=== PATIENT | female | born 1965 | race African-American/Black ===

== ENCOUNTER 2018-03-12 14:05 | Emergency (ER) | payer SELFPAY ==
[2018-03-12 14:27] LABS: #Basophils 0.1 thou/uL (0.0-0.2); #Eosinphils 0.1 thou/uL (0.0-0.7); #Monocytes 0.4 thou/uL (0.11-0.59); #Neutrophils 4.4 thou/uL (1.40-6.50); %Basophils 1.8 % (0.0-1.0); %Lymphocytes 37.5 % (21.0-51.0); %Monocytes 5.5 % (0.0-10.0); %Neutrophils 54.2 % (42.0-75.0); Hemoglobin 13.2 g/dL (12.0-16.0); Mean Corpuscular HGB CONC 33.5 g/dL (32.0-36.0); Mean Corpuscular Hemoglobin 29.2 pg (27.0-31.0); Mean Corpuscular Volume 87.1 fL (78.0-98.0); Mean Platelet Volume 7.5 fL (7.4-10.4); Platelet Count 343 thou/uL (130-400); RBC Distribution Width 13.3 % (11.5-14.5); Red Blood Cell (RBC) Count 4.52 mill/uL (4.20-5.40)
--- NOTE | 2018-03-12 14:48 | RAD ---
PA CHEST: History: Chest pain. Comparison: 10-20-16 FINDINGS: The lungs are clear. No infiltrates seen. Heart and mediastinum unremarkable and stable. IMPRESSION: No acute finding or interval change noted. POS: [facility]
[2018-03-12 14:49] LABS: ALT (SGPT) 13 U/L (8-55); AST (SGOT) 30 U/L (5-34); Albumin 4.7 g/dL (3.5-5.0); Alkaline Phosphatase 151 U/L (40-150); Anion Gap 12 mmol/L (10-20); BUN (Urea Nitrogen) 11 mg/dL (9.8-20.1); CK (CPK) 819 U/L (29-168); Calc. Creatinine Clearance 0 mL/min (70-130); Calcium 10.1 mg/dL (7.8-10.44); Carbon Dioxide 31 mmol/L (22-29); Chloride 100 mmol/L (98-107); Estimated GFR-MDRD 74; Globulin 3.9 g/dL (2.4-3.5); Glucose 117 mg/dL (70-105); Lipase 11 U/L (8-78); Potassium 3.1 mmol/L (3.5-5.1); Protein, Total 8.6 g/dL (6.0-8.3); Sodium 140 mmol/L (136-145)
[2018-03-12 14:53] LABS: CKMB 3.5 ng/mL (0-6.6); Troponin I Less than 0.010 ng/mL (< 0.028)
[2018-03-12] MEDS ORDERED: Mag-Al 1200 mg/1200 mg/30 ML UDCUP ONE (15:52)
[2018-03-12] MEDS ORDERED: Lidocaine Viscous Sol 2% 15 ml UD Cup ONE (15:52)
[2018-03-12] MEDS ORDERED: Lorazepam 1 MG TAB ONE (15:54)
== END 2018-03-12 16:55 | disposition home or self-care (01) ==
LOC: ERS 14:05
DX: K20.9 Esophagitis, unspecified (principal); F41.9 Anxiety disorder, unspecified; I10 Essential (primary) hypertension; Z79.899 Other long term (current) drug therapy
CPT/HCPCS: 36415; 71045; 80053; 82553; 83690; 84484; 85025; 93005; 94760

== ENCOUNTER 2018-06-21 13:49 | Outpatient (CLI) | payer MEDICARE | END 2018-06-21 13:50 | disposition home or self-care (01) | LOC: BICMAMMO 13:49 | PROVIDERS: ATTEND Family Medicine | DX: Z12.31 Encounter for screening mammogram for malignant neoplasm of breast (principal); N63.10 Unspecified lump in the right breast, unspecified quadrant | CPT/HCPCS: 77063; 77067 ==

== ENCOUNTER 2018-07-11 11:11 | Outpatient (CLI) | payer MEDICARE ==
--- NOTE | 2018-07-11 13:41 | ULT ---
RIGHT BREAST ULTRASOUND: History: Lobulated mass noted at the 6 o'clock position of the right breast on recent mammogram. FINDINGS: Real-time imaging of the area of concern shows a lobulated cyst with some thin internal septations. N o abnormal vascular flow. This measures 9 mm in size. It is superficial in location and corresponds i n size and location to the mammographic abnormality. IMPRESSION: BIRADS category 2 - benign findings. Routine mammographic follow up is recommended. POS: [facility]
== END 2018-07-11 11:12 | disposition home or self-care (01) ==
LOC: BICMAMMO 11:11
PROVIDERS: ATTEND Family Medicine
DX: R92.2 Inconclusive mammogram (principal); N63.10 Unspecified lump in the right breast, unspecified quadrant
CPT/HCPCS: 76642; 77065; G0279

== ENCOUNTER 2018-10-27 00:35 | Emergency (ER) | payer MEDICARE ==
[2018-10-27 01:00] LABS: Hemoglobin 13.6 g/dL (12.0-16.0); Mean Corpuscular HGB CONC 32.7 g/dL (32.0-36.0); Mean Corpuscular Hemoglobin 29.3 pg (27.0-31.0); Mean Corpuscular Volume 89.5 fL (78.0-98.0); Mean Platelet Volume 8.1 fL (7.4-10.4); Platelet Count 390 thou/uL (130-400); RBC Distribution Width 13.4 % (11.5-14.5); Red Blood Cell (RBC) Count 4.63 mill/uL (4.20-5.40); White Blood Cell (WBC) Count 9.2 thou/uL (4.8-10.8)
[2018-10-27 01:11] LABS: ALT (SGPT) 9 U/L (8-55); AST (SGOT) 22 U/L (5-34); Albumin 4.4 g/dL (3.5-5.0); Alkaline Phosphatase 154 U/L (40-150); Anion Gap 13 mmol/L (10-20); BUN (Urea Nitrogen) 11 mg/dL (9.8-20.1); Bilirubin, Total 0.8 mg/dL (0.2-1.2); Calc. Creatinine Clearance 0 mL/min (70-130); Calcium 10.1 mg/dL (7.8-10.44); Carbon Dioxide 29 mmol/L (22-29); Chloride 100 mmol/L (98-107); Estimated GFR-MDRD 83; Globulin 3.6 g/dL (2.4-3.5); Glucose 113 mg/dL (70-105); Sodium 139 mmol/L (136-145)
[2018-10-27 01:54] LABS: Eosinophils 3 % (0-10); Lymphocytes 56 % (21-51); MDiff Complete? YES; Monocytes 9 % (0-10); Neutrophil 30 % (42-75); Reactive Lymphocytes 2 % (0-10)
--- NOTE | 2018-10-27 09:17 | CT ---
PRELIMINARY REPORT/[facility]/EMERGENTY AFTER-HOURS PROCEDURE Addendum created by Robert Collazo MD on 10/27/2018 1:26 AM Central Time ([place] & [place]) Report of this suze e was discussed with SWAPNA Villagran at 1:25 AM PLATE GAUGER, 10/27/2018. The findings were acknowledged a nd understood. Initial Report created on 10/27/2018 1:06 AM Central Time ([place] & [place]) CT Head Without Contrast EXAM DATE/TIME: 10/27/2018 12:58 AM CLINICAL HISTORY: 53 years old, female; Signs and symptoms; Numbness / parasthesia; Patient HX: level 2 stroke alert* * f54, left head, neck and shoulder pain for "a few weeks" left facial numbness and tingling started yesterday TECHNIQUE: Axial computed tomography images of the head/brain without contrast. STROKE PROTOCOL was implemented. COMPARISON: No relevant prior studies available. FINDINGS: Brain: No acute intracranial hemorrhage or mass effect. There is relatively symmetrical decreased attenuation in the periventricular white matter, likely fro m microvascular disease. There are old lacunar infarcts in the thalami bilaterally. No definite acute infarct by CT. MRI could be more sensitive/specific for detection, as clinically di rected. Ventricles: Ventricle size is normal for age. Bones/joints: No definite acute skull fracture. Sinuses: Included paranasal sinuses are essentially clear. Mastoid air cells: No significant acute finding. Soft tissues: Unremarkable. Vasculature: Vascular calcifications noted in the internal carotid and vertebral basilar systems. IMPRESSION: 1. No acute intracranial bleed or mass effect. 2. Changes of microvascular disease, and old thalamic lacunar infarcts. 3. No definite acute infarct by CT, see above. ASSESSMENT: ASPECTS ([place] Stroke Program Early CT Score) is 10/10. Thank you for allowing us to participate in the care of your patient. Dictated and Authenticated by: Robert Collazo MD 10/27/2018 1:06 AM Central Time ([place] & [place]) FINAL REPORT EMERGENCY AFTER HOURS NONCONTRAST CT HEAD: Date: 10/27/18 HISTORY: Left head, neck, and shoulder pain for a few weeks. Left facial numbness and tingling which started 1 day ago. COMPARISON: None available. IMPRESSION: 1. Lacunar infarctions in each thalamus of indeterminate age. 2. Findings likely related to mild chronic small vessel ischemic changes. 3. Mild cerebral volume loss. 4. No acute cortical infarction or hemorrhage is seen. MRI would be a more sensitive study of choice for evaluation of more acute infarctions. Findings are in agreement with the preliminary report by J[facility]. POS: [facility]
== END 2018-10-27 01:40 | disposition home or self-care (01) ==
LOC: ERS 00:35
DX: G51.0 Bell's palsy (principal); M25.512 Pain in left shoulder; I10 Essential (primary) hypertension; F41.9 Anxiety disorder, unspecified; Z79.899 Other long term (current) drug therapy
CPT/HCPCS: 36415; 70450; 80053; 84484; 85025; 93005

== ENCOUNTER 2018-11-19 10:39 | Outpatient (CLI) | payer MEDICARE, OTHER ==
--- NOTE | 2018-11-19 13:53 | MRI ---
MRI CERVICAL SPINE WITHOUT CONTRAST: INDICATIONS: Cervical radiculopathy. TECHNIQUE: Multiplanar, multisequential imaging of the cervical spine obtained. FINDINGS: The cervical vertebrae maintain normal height and alignment. The disk spaces are preserved. Mild disk bulge and spondylosis at C2-C3 flattens the anterior thecal sac and mildly effaces the ante rior subarachnoid space. No cord impingement or central canal stenosis. Mild disk bulge and spondylosis at C3-C4 effaces the anterior subarachnoid space and abuts the anteri or cord. There is a disk osteophyte complex paracentrally on the left, abutting the anterior cord on the left and protruding mild left foraminal encroachment. At C4-C5, mild disk bulge and spondylosis efface the anterior subarachnoid space. No significant cor d impingement or foraminal stenosis. At C5-C6, normal disk bulge and spondylosis. No cord impingement. No significant foraminal stenosis . At C6-C7, no significant bulge or spondylosis. Anterior subarachnoid space is preserved. Cord signal is normal. IMPRESSION: Disk bulge and spondylosis is seen at C2-C3 and C3-C4. A disk osteophyte complex associated with unc inate hypertrophy projects to the left at C3-C4, producing left foraminal encroachment, as described above. POS: [facility]
== END 2018-11-19 10:40 | disposition home or self-care (01) ==
LOC: BICMRI 10:39
PROVIDERS: ATTEND Family Medicine
DX: M50.11 Cervical disc disorder with radiculopathy, high cervical region (principal); M47.22 Other spondylosis with radiculopathy, cervical region; M48.02 Spinal stenosis, cervical region
CPT/HCPCS: 72141